=== PATIENT | female | born 1990 | race Caucasian/White ===

== ENCOUNTER 2024-02-01 07:25 | Inpatient (IN) | payer SELFPAY ==
[2024-02-01] MEDS ORDERED: Sodium Chloride 0.9% 10 ML Syringe FLUSH PRN (07:30)
[2024-02-01] MEDS ORDERED: Methylergonovine 0.2 MG/1 ML Amp IM PRN ×2 (07:30→12:56)
[2024-02-01] MEDS ORDERED: Carboprost Tromethamine 250 MCG/1 ML Amp IM PRN ×2 (07:30→12:56)
[2024-02-01] MEDS ORDERED: Tranexamic Acid 1,000 MG in Sodium Chloride 0.9% 100 ML IV PRN ×2 (07:30→12:56)
[2024-02-01] MEDS ORDERED: Misoprostol 400 MCG (4 X 100 MCG TAB) RECTAL PRN ×2 (07:30→12:56)
[2024-02-01] MEDS ORDERED: NIFEdipine 10 MG Cap PO PRN (07:42)
[2024-02-01] MEDS ORDERED: Calcium Gluconate 10% 1 GM/10 ML SDV IV PRN (07:42)
[2024-02-01] MEDS ORDERED: Labetalol 20 MG/4 ML Syringe IVPUSH PRN (07:42)
[2024-02-01 08:34] LABS: HEMATOCRIT 37.8 % (37.0-47.0); HEMOGLOBIN 12.6 g/dL (12.0-16.0); MEAN CORPUSCULAR HEMOGLOBIN 29.7 pg (27.0-34.0); MEAN CORPUSCULAR HGB CONC 33.3 g/dL (33.0-35.0); MEAN CORPUSCULAR VOLUME 89.2 fL (80-100); RED BLOOD CELL COUNT 4.24 10^6/uL (4.2-5.4); WHITE BLOOD CELL COUNT,WBC 13.5 10^3/uL (5.0-10.0)
[2024-02-01 08:53] LABS: URIC ACID 4.4 mg/dL (2.6-6.0)
[2024-02-01 09:38] LABS: CREATININE,URINE RAND 206.9 mg/dL (No establ ref range); PROTEIN CREATININE RATIO,URINE 47.8 mg/g (<150.0); PROTEIN,URINE RANDOM 9.9 mg/dL (0.0-11.9)
[2024-02-01] MEDS ORDERED: Bupivacaine 0.25% 10 ML SDV ONE (10:39)
[2024-02-01] MEDS ORDERED: fentaNYL 100 MCG/2 ML SDV ONE (10:39)
[2024-02-01] MEDS: Lactated Ringers 1,000 ML IV ONE (10:40)
[2024-02-01] MEDS ORDERED: Ondansetron 4 MG/2 ML SDV IV ONE ×2 (10:45→11:50)
[2024-02-01] MEDS ORDERED: Ropivacaine 100 ML EPIDUR ONE ×2 (10:45→11:50)
[2024-02-01] MEDS ORDERED: fentaNYL 100 MCG/2 ML SDV EPIDUR ONE (10:45)
[2024-02-01] MEDS ORDERED: Ketorolac 30 MG/ML SDV IVPUSH ONE ×2 (10:45→11:50)
[2024-02-01] MEDS ORDERED: Bupivacaine 0.25% 10 ML SDV NERVRT ONE (10:45)
[2024-02-01] MEDS ORDERED: Ropivacaine 200 MG in Premix Bag 1 BAG EPIDUR SCH (11:00)
[2024-02-01] MEDS ORDERED: ePHEDrine 50 MG/ML SDV IVPUSH PRN ×2 (11:00→12:56)
[2024-02-01] MEDS ORDERED: Phenylephrine HCl In 0.9% NaCl 1 MG/10 ML Syringe IVPUSH PRN (11:00)
[2024-02-01] MEDS: Lactated Ringers 1,000 ML IV SCH ×2 (11:41→12:40)
[2024-02-01] MEDS ORDERED: Water For Injection, Sterile 20 ML ONE (11:48)
[2024-02-01] MEDS ORDERED: Lidocaine 2% with EPINEPHrine 1:200,000 20 ML SDV NERVRT ONE (11:50)
[2024-02-01] MEDS ORDERED: Morphine PF 10 MG/10 ML SDV EPIDUR ONE (11:50)
[2024-02-01] MEDS ORDERED: Oxytocin/Normal Saline 30 UNIT/500 ML BAG IV ONE (11:50)
[2024-02-01] MEDS ORDERED: Morphine PF 10 MG/10 ML SDV ONE (12:08)
[2024-02-01] MEDS: Oxytocin/Normal Saline 30 UNIT/500 ML BAG IV SCH (12:40)
[2024-02-01] MEDS ORDERED: Ondansetron 4 MG/2 ML SDV ONE (12:46)
[2024-02-01] MEDS ORDERED: Dexamethasone 4 MG/ML SDV ONE (12:46)
[2024-02-01] MEDS ORDERED: Oxytocin 10 Units/1 ML SDV ONE (12:46)
[2024-02-01] MEDS ORDERED: Ketorolac 30 MG/ML SDV ONE (12:46)
[2024-02-01] MEDS ORDERED: ceFAZolin 2 GM Vial ONE (12:47)
[2024-02-01] MEDS ORDERED: Naloxone 2 MG/2 ML Syringe IVPUSH PRN (12:56)
[2024-02-01] MEDS ORDERED: Ondansetron 4 MG/2 ML SDV IVPUSH PRN (12:56)
[2024-02-01] MEDS ORDERED: Acetaminophen 325 MG Tab PO PRN (12:56)
[2024-02-01] MEDS ORDERED: Acetaminophen/oxyCODONE 325-5 MG Tab PO PRN ×2 (12:56)
[2024-02-01] MEDS ORDERED: diphenhydrAMINE 50 MG/ML SDV IVPUSH PRN (12:56)
[2024-02-01] MEDS: Simethicone 80 MG Tab.Chew PO SCH (17:33)
[2024-02-01] MEDS: Lidocaine 1% 30 ML SDV INJECT ONE (17:34)
[2024-02-01] MEDS: Magnesium Sulfate/Water Premix 4 GM in Premix Bag 1 BAG IV ONE (17:34)
[2024-02-01] MEDS: Ketorolac 30 MG/ML SDV IVPUSH SCH (18:12)
[2024-02-01] MEDS: Ondansetron 4 MG/2 ML SDV IVPUSH PRN (21:08)
[2024-02-02 06:10] LABS: HEMATOCRIT 30.1 % (37.0-47.0); HEMOGLOBIN 9.8 g/dL (12.0-16.0); MEAN CORPUSCULAR HEMOGLOBIN 29.8 pg (27.0-34.0); MEAN CORPUSCULAR HGB CONC 32.6 g/dL (33.0-35.0); MEAN CORPUSCULAR VOLUME 91.5 fL (80-100); RED BLOOD CELL COUNT 3.29 10^6/uL (4.2-5.4); WHITE BLOOD CELL COUNT,WBC 11.6 10^3/uL (5.0-10.0)
[2024-02-02] MEDS: Docusate Sodium 100 MG Cap PO PRN (09:48)
[2024-02-02] MEDS: Prenatal Multivitamin with Calcium/Folic Acid/Iron Tab PO SCH (09:49)
[2024-02-02] MEDS: Ibuprofen 800 MG Tab PO SCH (13:58)
[2024-02-02] MEDS: Acetaminophen 325 MG Tab PO PRN (17:41)
== END 2024-02-03 11:17 | disposition home or self-care (01) | DRG 788 ==
LOC: DL.OB 08:01 → OBSVTOIN 08:01
PROVIDERS: ADMIT Family Medicine; ATTEND Family Medicine
PROC: 3E0R3BZ Introduction of Anesthetic Agent into Spinal Canal, Percutaneous Approach (ICD-10-PCS; 2024-02-01)
PROC: 00HU33Z Insertion of Infusion Device into Spinal Canal, Percutaneous Approach (ICD-10-PCS; 2024-02-01)
PROC: 10D00Z1 Extraction of Products of Conception, Low, Open Approach (ICD-10-PCS; principal; 2024-02-01 12:00)
DX: O13.4 Gestational [pregnancy-induced] hypertension without significant proteinuria, complicating childbirth (principal); Z3A.39 39 weeks gestation of pregnancy; Z37.0 Single live birth; O62.1 Secondary uterine inertia; O66.5 Attempted application of vacuum extractor and forceps
CPT/HCPCS: 01967; 01968; 36415; 51701; 51702; 82570; 83615; 84156; 84450; 84460; 84520; 84550; 85027; 86850; 86900; 86901; A9270-GY; C1729; J1885; J2405; J2590; J7120